=== PATIENT | female | born 2000 | race Caucasian/White ===

== ENCOUNTER 2020-05-01 01:54 | Emergency (ER) | payer OTHER ==
[~2020-05-01] VITALS: Ht 152.4 cm; Wt 72.7 kg
[2020-05-01 01:54] VITALS: BP 101/63
--- NOTE | 2020-05-01 02:17 | PHYS DOC ---
General Adult EDM: Chief Complaint: sore throat HPI: HPI: 19-year-old female presents with sore throat. The patient has had nasal congestion for about the last 1 week. She developed a sore throat today. I started hurting after she took a nap. She tried drinking some water to see if it would help but it has not. She denies fever chills. Review of Systems: Review of Systems: Constitutional: Denies fever or chills Eyes: Denies change in visual acuity HENT: sore throat Respiratory: Intermittent cough without shortness of breath Cardiovascular: Denies chest pain or edema GI: Denies abdominal pain, nausea, vomiting, bloody stools or diarrhea : Denies dysuria Musculoskeletal: Denies back pain or joint pain Integument: Denies rash Neurologic: Denies headache, focal weakness or sensory changes Endocrine: Denies polyuria or polydipsia Lymphatic: Denies swollen glands Psychiatric: Denies depression or anxiety Heart Score: Risk Factors: Risk Factors: DM, Current or recent (<one month) smoker, HTN, HLP, family history of CAD, obesity. Risk Scores: Score 0 - 3: 2.5% MACE over next 6 weeks - Discharge Home Score 4 - 6: 20.3% MACE over next 6 weeks - Admit for Clinical Observation Score 7 - 10: 72.7% MACE over next 6 weeks - Early Invasive Strategies Physical Exam: PE: Constitutional: Well developed, well nourished, no acute distress, non-toxic appearance. [] HENT: Normocephalic, atraumatic, bilateral external ears normal, oropharynx moist, enlarged tonsils without exudates, nose normal. [] Eyes: PERRLA, EOMI, conjunctiva normal, no discharge. [] Neck: Normal range of motion, no tenderness, supple, no stridor. [] Cardiovascular:Heart rate regular rhythm, no murmur [] Lungs & Thorax: Bilateral breath sounds clear to auscultation [] Abdomen: Bowel sounds normal, soft, no tenderness, no masses, no pulsatile masses. [] Skin: Warm, dry, no erythema, no rash. [] Back: No tenderness, no CVA tenderness. [] Extremities: No tenderness, no cyanosis, no clubbing, ROM intact, no edema. [] Neurologic: Alert and oriented X 3, normal motor function, normal sensory function, no focal deficits noted. [] Psychologic: Affect normal, judgement normal, mood normal. [] EKG: EKG: [] Radiology/Procedures: Radiology/Procedures: [] Course & Med Decision Making: Course & Med Decision Making Pertinent Labs and Imaging studies reviewed. (See chart for details) The patient's rapid strep is negative. This appears to be a viral pharyngitis. I have advised supportive care. She is stable for discharge at this time. [] Avison Disclaimer: Arben Disclaimer: This electronic medical record was generated, in whole or in part, using a voice recognition dictation system. Departure Departure: Impression: Primary Impression: Viral pharyngitis Disposition: HOME/RESIDENCE PRIOR TO ADM Condition: STABLE Patient Instructions: Viral Pharyngitis Justification of Admission: Justification of Admission: Justification of Admission Dx: N/A JONA DRAKE DO May 01, 2020 02:17
== END 2020-05-01 02:40 | disposition home or self-care (01) ==
LOC: ER 01:54
DX: J02.8 Acute pharyngitis due to other specified organisms (principal); B97.89 Other viral agents as the cause of diseases classified elsewhere
CPT/HCPCS: 87070; 87880; 99283

== ENCOUNTER 2020-06-25 01:32 | Emergency (ER) | payer OTHER ==
[~2020-06-25] VITALS: Ht 152.4 cm; Wt 72.7 kg
[2020-06-25] MEDS ORDERED: IPRATRPIUM/ALBUTEROL 0.5/2.5MG 3 ML NEBU. ONE (01:37)
[2020-06-25] MEDS ORDERED: MAGNESIUM HYDROXIDE 2,400 MG/30 ML ORAL.SUSP. PO ONE (01:45)
[2020-06-25] MEDS ORDERED: diphenhydrAMINE 50 MG/ML VIAL IV ONE (01:45)
[2020-06-25] MEDS ORDERED: FAMOTIDINE 20 MG/2 ML VIAL IVP ONE (01:45)
[2020-06-25] MEDS ORDERED: methylPREDNISolone SOD SUCC PF 125 MG/2 ML VIAL. IV ONE (01:45)
[2020-06-25] MEDS ORDERED: IPRATRPIUM/ALBUTEROL 0.5/2.5MG 3 ML NEBU. NEB ONE (01:45)
[2020-06-25] MEDS ORDERED: IV RINGERS SOLUTION,LACTATED 1,000 ML IV SCH (01:45)
--- NOTE | 2020-06-25 01:45 | PHYS DOC ---
Past History Past Medical History: Anxiety, Other Additional Past Medical Histor: strep Past Medical History Allergy to Aspirin Alcohol Use: None General Adult EDM: Chief Complaint: ALLERGIC REACTION HPI: HPI: ".." I think I am having an allergic reaction to Alligator meat.. this coughing..wheezing started ... after I ate the Alligator meat..." Patient is a 19 year old female who presents with above hx of allergic reactions after eating a $18.00 plate of Alligator meat at [employer] at approximately 1900 hrs. Pt. has eaten Alligator one previous time. Patient only other time allergic re action is after taking aspirin. Patient states symptoms started immediately after eating Alligator meat and have progressed until current presentation. Patient has had increased cough, wheezing and upset stomach. No recent travel or specific ill contacts. Normally healthy. No history immunosuppression. Does have a history of severe aspirin allergy. No recent travel outside the [place] area. Review of Systems: Review of Systems: Constitutional: Denies fever or chills Eyes: Denies change in visual acuity HENT: Denies nasal congestion or sore throat Respiratory: History of cough and wheezing Cardiovascular: Denies chest pain or edema GI: Denies abdominal pain, , vomiting, bloody stools or diarrhea . Complains of nausea : Denies dysuria Musculoskeletal: Denies back pain or joint pain Integument: Denies rash Neurologic: Denies headache, focal weakness or sensory changes Endocrine: Denies polyuria or polydipsia Lymphatic: Denies swollen glands Psychiatric: History of anxiety Heart Score: HEART Score for Chest Pain: HEART Score for Chest Pain Response (Comments) Value History Slighlty/Non-Suspicious 0 ECG Nonspecific Repolarizatio 1 Age < 45 0 Risk Factors No Risk Factors 0 Troponin < Normal Limit 0 Total 1 Risk Factors: Risk Factors: DM, Current or recent (<one month) smoker, HTN, HLP, family history of CAD, obesity. Risk Scores: Score 0 - 3: 2.5% MACE over next 6 weeks - Discharge Home Score 4 - 6: 20.3% MACE over next 6 weeks - Admit for Clinical Observation Score 7 - 10: 72.7% MACE over next 6 weeks - Early Invasive Strategies Family History: Family History: Noncontributory Current Medications: Current Meds: Current Medications Medications (Trade) Dose Ordered Sig/Angela Start Time Stop Time Status Last Admin Dose Admin Albuterol/ Ipratropium (Duoneb) 3 ml STK-MED ONCE 06/25/20 01:37 06/25/20 01:37 DC Allergies: Allergies: Allergies Coded Allergies Type Severity Reaction Last Updated Verified aspirin Allergy Unknown 06/25/20 Yes Physical Exam: PE: Constitutional: Moderate acute distress, non-toxic appearance. [] HENT: Normocephalic, atraumatic, bilateral external ears normal, oropharynx moist, no oral exudates, nose swollen turbinates and clear rhinorrhea Eyes: PERRLA, EOMI, conjunctiva normal, no discharge. [] Neck: Normal range of motion, no tenderness, supple, no stridor. [] Cardiovascular: Tachycardia heart rate regular rhythm, no murmur [] Lungs & Thorax: Bilateral breath sounds equal at apex with few scattered wheezes on auscultation [] Abdomen: Bowel sounds hyperactive, soft, no tenderness, no masses, no pulsatile masses. Obese Skin: Warm, dry, no erythema, no rash. [] Back: No tenderness, no CVA tenderness. [] Extremities: No tenderness, no cyanosis, no clubbing, ROM intact, no edema. [] Neurologic: Alert and oriented X 3, normal motor function, normal sensory function, no focal deficits noted. [] Psychologic: Affect extremely anxious, judgement normal, mood normal. Constantly on her cell phone. EKG: EKG: My interpretation EKG shows a sinus tachycardia at 109 bpm. No findings acute STEMI of contralateral changes .[] Radiology/Procedures: Radiology/Procedures: [] Course & Med Decision Making: Course & Med Decision Making Pertinent Labs and Imaging studies reviewed. (See chart for details) Patient given a DuoNeb, Solu-Medrol 125, Benadryl 50 mg, Pepcid 20 mg, and Solu- Medrol 125. IV patient was given a dose of milk of mag 30 cc p.o. since suspect that alligator may as a cause of her allergic reaction. Patient symptoms improved during ED visit. Patient avoid further alligator meat. Patient expect continued symptoms until passage of the alligator food bolus. Patient use MDI 2 puffs 4 times a day. Patient take prednisone 50 mg a day for 5 days. Patient take Benadryl 25 to 50 mg up to 4 times a day for itching. Patient take Pepcid 20 mg twice a day. Patient follow-up primary care. Patient return if concerns. Do not take any ibuprofen. May take Tylenol for discomfort. Impression: 1. Allergic reaction-alligator meat 2. History of allergic reaction to aspirin 3. History of anxiety [] Dragon Disclaimer: Dragon Disclaimer: This electronic medical record was generated, in whole or in part, using a voice recognition dictation system. Departure Departure: Disposition: HOME/RESIDENCE PRIOR TO ADM Condition: STABLE Referrals: PCP,KATIE (PCP) Scripts Famotidine (PEPCID) 20 Mg Tablet 1 TAB PO BID for allergic reaction, #10 TAB 3 Refills Prov: CLEVELAND MAN MD 06/25/20 Prednisone (PREDNISONE) 50 Mg Tablet 50 MG PO DAILY for allergic reaction for 5 Days, #5 TAB Prov: CLEVELAND MAN MD 06/25/20 Justification of Admission: Justification of Admission: Justification of Admission Dx: N/A Dragon Disclaimer This chart was dictated in whole or in part using Voice Recognition software in a busy, high-work load, and often noisy Emergency Department environment. It may contain unintended and wholly unrecognized errors or omissions. CLEVELAND MAN MD Jun 25, 2020 01:44
[2020-06-25] MEDS ORDERED: diphenhydrAMINE 50 MG/ML VIAL ONE (01:46)
[2020-06-25] MEDS ORDERED: FAMOTIDINE 20 MG/2 ML VIAL ONE (01:46)
[2020-06-25] MEDS ORDERED: methylPREDNISolone SOD SUCC PF 125 MG/2 ML VIAL. ONE (01:46)
--- NOTE | 2020-06-25 02:28 | EKG ---
[address] [address] Test Date: 2020-06-25 Test Time: 02:18:52 Pat Name: JUDI SALDANA Department: Room: Gender: F Setup Operator: : 2000 Requested By: CLEVELAND MAN Order Number: [id number] Reading MD: Measurements Intervals [place] Rate: 109 P: 6 PA: 140 QRS: 48 QRSD: 84 T: 10 QT: 304 QTc: 411 Interpretive Statements SINUS TACHYCARDIA NO SPECIFIC ECG ABNORMALITIES RI6.02 No previous ECG available for comparison
[2020-06-25 02:30] LABS: CALCIUM 9.3 mg/dL (8.5-10.1); CREATININE 1.1 mg/dL (0.6-1.0); GFR 62.7; POTASSIUM 3.6 mmol/L (3.5-5.1)
[2020-06-25 02:39] LABS: BASO # 0.1 x10^3/uL (0.0-0.2); BASO % 1 % (0-3); EOS # 0.2 x10^3/uL (0.0-0.7); EOS % 2 % (0-3); HEMATOCRIT 41.5 % (36.0-47.0); HEMOGLOBIN 13.7 g/dL (12.0-15.5); LYMPH # 2.8 x10^3/uL (1.0-4.8); LYMPH % 28 % (24-48); MEAN CORPUSCULAR HEMOGLOBIN 28 pg (25-35); MEAN CORPUSCULAR HGB CONC 33 g/dL (31-37); MEAN CORPUSCULAR VOLUME 85 fL (79-100); MONO # 0.7 x10^3/uL (0.0-1.1); MONO % 7 % (0-9); NEUT # 6.3 x10^3uL (1.8-7.7); NEUT % 62 % (31-73); PLATELET COUNT 221 x10^3/uL (140-400); RED BLOOD COUNT 4.91 x10^6/uL (3.50-5.40); RED CELL DISTRIBUTION WIDTH 13.8 % (11.5-14.5)
[2020-06-25 02:42] LABS: MAGNESIUM 1.9 mg/dL (1.8-2.4)
[2020-06-25] MEDS ORDERED: IV RINGERS SOLUTION,LACTATED 1,000 ML IV ONE (03:30)
[2020-06-25 03:48] LABS: BARBITURATES NEG (NEG); BENZODIAZEPINES NEG (NEG); CANNABINOIDS NEG (NEG); COCAINE NEG (NEG); METHADONE NEG (NEG); OPIATES NEG (NEG); PHENCYCLIDINE NEG (NEG)
[2020-06-25 03:50] LABS: AMPHETAMINE/METHAMPHETAMINE NEG (NEG)
[2020-06-25 03:55] LABS: BACTERIA,URINE 0 /HPF (0-FEW); BILIRUBIN,URINE NEG (NEG); CLARITY,URINE CLEAR; COLOR,URINE YELLOW; GLUCOSE,URINE NEG (NEG); NITRITE,URINE NEG (NEG); RBC,URINE 0 /HPF (0-2); SQUAMOUS EPITHELIAL CELL,UR FEW /LPF; UROBILINOGEN,URINE 0.2 mg/dL (0.2 mg/dL); WBC,URINE OCC /HPF (0-4)
[2020-06-25] MEDS ORDERED: ALBUTEROL SULFATE 8GM INHALER. INH ONE (04:15)
[2020-06-25] MEDS ORDERED: FAMO-63 PO (04:31)
[2020-06-25] MEDS ORDERED: PRED50TA PO (04:31)
[2020-06-25] MEDS ORDERED: ALBUTEROL SULFATE 8GM INHALER. ONE (04:32)
[2020-06-25 04:35] VITALS: BP 103/43
== END 2020-06-25 04:40 | disposition home or self-care (01) ==
LOC: ER 01:32
DX: T78.1XXA Other adverse food reactions, not elsewhere classified, initial encounter (principal); R05 Cough; R06.2 Wheezing; F41.9 Anxiety disorder, unspecified; Z88.6 Allergy status to analgesic agent; X58.XXXA Exposure to other specified factors, initial encounter
CPT/HCPCS: 36415; 80048; 80307; 81001; 83735; 83880; 85025; 93005; 94640; 96361; 96374; 96375; 99285; J1200; J2930; J3490; J7120; J7613; 94664

== ENCOUNTER 2020-10-30 22:16 | Emergency (ER) | payer OTHER ==
[~2020-10-30] VITALS: Ht 152.4 cm; Wt 84.7 kg
[2020-10-30 22:16] VITALS: BP 109/67
[~2020-10-30 22:16] MED LIST: FAMO-63 PO; PRED50TA PO
--- NOTE | 2020-10-30 22:41 | PHYS DOC ---
Past History Past Medical History: Anxiety, Other Past Surgical History: No Surgical History Alcohol Use: None Adult General Chief Complaint Chief Complaint: MULTIPLE COMPLAINTS [facility] HPI Patient is a healthy fully vaccinated 20-year-old female who presents for Covid- like symptoms. Onset of symptoms was yesterday evening without any known inciting event, trauma, recent travel or known COVID-19 exposure. Nothing known makes better or worse. Patient reports subjective chills, rhinorrhea, postnasal drip, sneezing, facial congestion, generalized chest pressure and shortness of breath without wheezing, and a nonproductive cough. No reported fever greater than 100.4, syncope, dizziness, abdominal pain, changes in bladder or bowel function or urinary symptoms. She works at [employer] and is exposed to general public daily Review of Systems Review of Systems Fourteen body systems of review of systems have been reviewed. See HPI for pertinent positives and negative responses, other marie all other systems are negative, non-pertinent or non-contributory Allergies Allergies Allergies Coded Allergies Type Severity Reaction Last Updated Verified aspirin Allergy Unknown 06/25/20 Yes Uncoded Allergies Type Severity Reaction Last Updated Verified alligator Allergy Intermediate SOB 06/25/20 Physical Exam Physical Exam General: Appears well, non toxic, and comfortable Skin: Warm, dry. Normal for ethnicity. HEENT: Atraumatic. PERRLA. Rhinorrhea and congestion. Nasal turbinates boggy b/l. Moist mucous membranes. Uvula midline. Maintaining secretions. No phonation changes. Neck: Trachea midline. Normal ROM. No stridor. Respiratory: Normal WOB. CTAB w/o w/r/r. No tachypnea. Cardiovascular: Regular rate and rhythm. Normal peripheral perfusion. Abdomen: Soft. Non tender. No distension. Back: Normal ROM. Musculoskeletal: No swelling or deformity. Neuro: Alert and oriented x 4. MAEE. Lymph: No cervical LAD. Psych: Normal affect and mood. Current Patient Data Vital Signs Vital Signs Date Time Temp Pulse Resp B/P (MAP) Pulse Ox O2 Delivery O2 Flow Rate FiO2 10/30/20 22:16 98.4 83 18 109/67 (81) 96 Room Air EKG EKG EKG ordered and interpreted by myself 2240 hrs. as sinus rhythm at 73 bpm, unremarkable intervals, no axis deviation, T wave inversions noted in leads V2 and V3, no STEMI, no prior EKG to compare to Radiology/Procedures Radiology/Procedures EXAM: AP View of the chest DATE: 10/30/2020 10:42 PM INDICATION: Reason: CHEST PAIN, COUGH / Spl. Instructions: / History: COMPARISON: No Prior FINDINGS: The heart is not enlarged. Mediastinal and hilar contours are normal. No focal parenchymal airspace opacity. No pleural effusion or pneumothorax. IMPRESSION: 1. No radiographic evidence for acute cardiopulmonary process. Electronically signed by: Francisco Kimbrough MD (10/30/2020 11:03 PM) [facility] Heart Score HEART Score for Chest Pain: HEART Score for Chest Pain Response (Comments) Value History Slighlty/Non-Suspicious 0 ECG Nonspecific Repolarizatio 1 Age < 45 0 Risk Factors No Risk Factors 0 Total 1 Risk Factors: Risk Factors: DM, Current or recent (<one month) smoker, HTN, HLP, family history of CAD, obesity. Risk Scores: Risk Factors: DM, Current or recent (<one month) smoker, HTN, HLP, family history of CAD, obesity. Course & Med Decision Making Course & Med Decision Making Discussed with the patient all findings and diagnostic testing. I discussed most likely diagnosis of viral syndrome but could not exclude COVID-19 given ongoing pandemic, she was swabbed for this and updated on status of being a PUI. No indication for further diagnostic work-up in ER nor admission. I stressed need for close outpatient follow-up to review today's ER visit pending negative Covid test. I advised continued supportive care practices at home such as using Zyrtec and Flonase daily and ensuring good p.o. water intake daily. Strict return precautions were also discussed at length with good understanding by patient. Patient voiced understanding and agreement with the plan. Patient knows to come back for repeat evaluation if concerning signs or symptoms present prior to outpatient follow-up. Hemodynamically stable, ambulatory and well-appearing at time of disposition. Dragon Disclaimer Dragon Disclaimer This electronic medical record was generated, in whole or in part, using a voice recognition dictation system. Departure Departure: Impression: Primary Impression: Viral syndrome Additional Impression: Person under investigation for COVID-19 Disposition: 01 DC HOME SELF CARE/HOMELESS Condition: STABLE Referrals: PCP,NO (PCP) Patient Instructions: Viral Syndrome Additional Instructions: You were seen for non-specific upper respiratory-like symptoms and possible infection with COVID-19. Your physical exam was reassuring. Your chest x-ray was normal. We tested you for COVID-19 but this test does not come back for 1 to 2 days. In the meantime you need to quarantine yourself at home away from all other individuals, especially those who are elderly or have any other chronic health issues or an immunocompromised status. You should return to the ED if you develop worsening cough, shortness of breath, chest pain, or any other new or concerning symptoms. Alternate Tylenol and ibuprofen as needed for body aches and pain. If your test does come back positive you need to quarantine yourself for 10 days until symptom-free. You should make sure to drink plenty of fluids and get plenty of rest. Problem Qualifiers JOSE BECKER DO Oct 30, 2020 22:41
--- NOTE | 2020-10-30 22:48 | EKG ---
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
[2020-10-30] MEDS ORDERED: CETIRIZINE HCL 10 MG TABLET PO ONE (23:00)
--- NOTE | 2020-10-30 23:05 | RAD ---
EXAM: AP View of the chest DATE: 10/30/2020 10:42 PM INDICATION: Reason: CHEST PAIN, COUGH / Spl. Instructions: / History: COMPARISON: No Prior FINDINGS: The heart is not enlarged. Mediastinal and hilar contours are normal. No focal parenchymal airspace opacity. No pleural effusion or pneumothorax. IMPRESSION: 1. No radiographic evidence for acute cardiopulmonary process. Electronically signed by: Francisco Kimbrough MD (10/30/2020 11:03 PM) AVE
--- NOTE | 2020-11-05 09:08 | NUR ---
IP: attempt to notify patient of COVID result, unable to leave message. Will send letter.
--- NOTE | 2020-11-05 11:23 | NUR ---
IP: patient notified of COVID result.
== END 2020-10-30 23:00 | disposition home or self-care (01) ==
LOC: ER 22:16
DX: B34.9 Viral infection, unspecified (principal); F41.9 Anxiety disorder, unspecified; Z20.828 Contact with and (suspected) exposure to other viral communicable diseases; Z88.6 Allergy status to analgesic agent
CPT/HCPCS: 71045; 93005; 99285; C9803; U0003; 99284

== ENCOUNTER 2020-12-04 14:01 | Emergency (ER) | payer OTHER ==
[~2020-12-04] VITALS: Ht 165.1 cm; Wt 81.8 kg
[2020-12-04 14:14] VITALS: BP 96/70
--- NOTE | 2020-12-04 15:48 | PHYS DOC ---
Past History Past Medical History: Asthma, Depression, Other Additional Past Medical Histor: PTSD Past Surgical History: Other Additional Past Surgical Histo: EYE SURGERY Alcohol Use: None General Adult EDM: Chief Complaint: sore throat HPI: HPI: 20-year-old female presents emergency department today with a sore throat. Her sore throat is been present for a few days. She denies any difficulty swallowing or difficulty breathing. She has not had any exposure to COVID-19 that she knows of. She denies fevers or chills. She denies any rashes. Duration constant. Moderate in severity. Throbbing in nature. Review of systems negative for chest pain shortness of breath abdominal pain vom iting fevers chills. Negative for nuchal rigidity or rash. All other review of systems negative. ED course: 20-year-old female presenting with sore throat. Patient is well- appearing with normal vital signs (mildly low bp) and a normal examination. Str ep test negative. I offered Covid testing which the patient declined. Will discharge patient to follow-up with PCP in 1 to 2 days. The patient has been examined and was not found to have an emergency medical condition. The patient was then discharged home in stable condition to follow up with their primary care physician over the next 1-2 days. They were to return if their symptoms worsened or if they were concerned for any reason. They were also instructed to return to the emergency department if they were unable to get the recommended and appropriate follow-up. [id number] discharge instructions and return precautions were given. Patient's questions were answered to their satisfaction. Patient is comfortable with plan. Allergies: Allergies: Allergies Coded Allergies Type Severity Reaction Last Updated Verified aspirin Allergy Unknown 06/25/20 Yes Uncoded Allergies Type Severity Reaction Last Updated Verified alligator Allergy Intermediate SOB 06/25/20 Physical Exam: PE: Constitutional: Well developed, well nourished, no acute distress, non-toxic appearance. [] HENT: Normocephalic, atraumatic, bilateral external ears normal, oropharynx moist, no oral exudates, nose normal. Mild erythema of the throat. No exudate of the tonsils. Uvula midline. Breathing comfortably. Swallowing secretions well with difficulty. No swelling of the neck. Eyes: PERRLA, EOMI, conjunctiva normal, no discharge. [] Neck: Normal range of motion, no tenderness, supple, no stridor. [] Cardiovascular:Heart rate regular rhythm, no murmur [] Lungs & Thorax: Bilateral breath sounds clear to auscultation [] Abdomen: Bowel sounds normal, soft, no tenderness, no masses, no pulsatile masses. [] Skin: Warm, dry, no erythema, no rash. [] Back: No tenderness, no CVA tenderness. [] Extremities: No tenderness, no cyanosis, no clubbing, ROM intact, no edema. [] Neurologic: Alert and oriented X 3, normal motor function, normal sensory function, no focal deficits noted. [] Psychologic: Affect normal, judgement normal, mood normal. [] Current Patient Data: Vital Signs: Vital Signs Date Time Temp Pulse Resp B/P (MAP) Pulse Ox O2 Delivery O2 Flow Rate FiO2 12/04/20 14:14 98.5 87 18 96/70 (79) 96 Room Air EKG: EKG: [] Radiology/Procedures: Radiology/Procedures: [] Heart Score: Risk Factors: Risk Factors: DM, Current or recent (<one month) smoker, HTN, HLP, family history of CAD, obesity. Risk Scores: Score 0 - 3: 2.5% MACE over next 6 weeks - Discharge Home Score 4 - 6: 20.3% MACE over next 6 weeks - Admit for Clinical Observation Score 7 - 10: 72.7% MACE over next 6 weeks - Early Invasive Strategies Course & Med Decision Making: Course & Med Decision Making Pertinent Labs and Imaging studies reviewed. (See chart for details) [] Arben Disclaimer: Dragon Disclaimer: This electronic medical record was generated, in whole or in part, using a voice recognition dictation system. Departure Departure: Impression: Primary Impression: Sore throat (viral) Disposition: 01 DC HOME SELF CARE/HOMELESS Condition: STABLE Referrals: PCP,NO (PCP) Patient Instructions: Medical Screening Exam Additional Instructions: EMERGENCY DEPARTMENT GENERAL DISCHARGE INSTRUCTIONS Follow-up with your primary physician in 1 to 2 days. Return to the emergency department if you have any new or concerning findings. Thank you for coming to [facility] emergency department today and trusting us with you care. We trust that you had a positive experience in our Emergency Department. If you wish to speak to the department management, you may call the Director at [phone]. YOUR FOLLOW UP INSTRUCTIONS ARE FOLLOWS: 1. Do you have a private Doctor? If you do not have a private doctor, please ask for a resource list of physicians or clinics that may be able to assist you with follow up care. 2. If a lab test or culture has been done and does not come back immediately, your results will be reviewed and you will be notified if you need a change in treatment. ADDITIONAL INSTRUCTIONS AND INFORMATION: 1. Your care today has been supervised by a physician who is specially trained in emergency care. Many problems require more than one evaluation for a complete diagnosis and treatment. We recommend that you schedule your follow up appointment as recommended to ensure complete treatment of you illness or injury. If you are unable to obtain follow up care and continue to have a problem, or if your condition worsens, we recommend that you return to the ED. 2. We are not able to safely determine your condition over the phone nor are we able to give sound medical advice over the phone. For these safety reasons, if you call for medical advice we will ask you to come to the ED for further evaluation. 3. If you have any questions regarding these discharge instructions please call the ED at [phone]. SAFETY INFORMATION: In the interest of safety, wellness, and injury prevention; we encourage you to wear your sealbelt, if you smoke; quite smoking, and we encourage family to use a protective helmet for bicycling and other sporting events that present an increased risk for head injury. IF YOUR SYMPTOMS WORSEN OR NEW SYMPTOMS DEVELOP, OR YOU HAVE CONCERNS ABOUT YOUR CONDITION; OR IF YOUR CONDITION WORSENS WHILE YOU ARE WAITING FOR YOUR FOLLOW UP APPOINTMENT; EITHER CONTACT YOUR PRIMARY CARE DOCTOR, THE PHYSICIAN WHOSE NAME AND NUMBER YOU WERE GIVEN, OR RETURN TO THE ED IMMEDIATELY. This condition should be evaluated by your primary care physician and any necessary consulting services for continued management within a few days (1-2) after discharge. Return to the emergency department if you have any new or concerning symptoms including but not limited to fever, chills, nausea, vomiting, intractable pain, any new rashes, chest pain, shortness of breath, uncontrolled bleeding, difficulty breathing, and/or vision loss. SIA BOURGEOIS MD Dec 04, 2020 15:48
== END 2020-12-04 16:20 | disposition home or self-care (01) ==
LOC: ER 14:01
DX: J02.8 Acute pharyngitis due to other specified organisms (principal); B97.89 Other viral agents as the cause of diseases classified elsewhere; J45.909 Unspecified asthma, uncomplicated; F43.10 Post-traumatic stress disorder, unspecified; Z88.0 Allergy status to penicillin
CPT/HCPCS: 87070; 87880; 99283

== ENCOUNTER 2020-12-06 21:33 | Emergency (ER) | payer OTHER ==
[~2020-12-06] VITALS: Ht 165.1 cm; Wt 81.8 kg
--- NOTE | 2020-12-06 22:24 | PHYS DOC ---
Past History Past Medical History: Anxiety, Asthma, Depression, Migraines, Sinusitis, Other Additional Past Medical Histor: PTSD Past Medical History Dental caries Past Surgical History: Other Additional Past Surgical Histo: EYE SURGERY Alcohol Use: None General Adult EDM: Chief Complaint: HEADACHE HPI: HPI: ".. I am still got a sore throat.. and these frontal headache and congestion.. I was here the other day.. and I am not better..." " I feel much worse.." Patient is a 20 year old female who presents with above hx frontal sinus congest ion, sore throat and complaints mirgraine . Patient seen previously on 12/04/20 for similar complaints. Patient does have a history of prior migraines, asthma, dental caries, depression, PTSD, eye surgery,, anxiety. Patient strep test previously was negative on visit and felt that symptoms were primarily a viral syndrome. Patient states her migraine symptoms have not resolved, some photophobia and now dizzy. . Patient denies any fever or chills. Denies any specific ill contacts. No history immunosuppression. No history of recent travel. No history of trauma. Patient denies IV drug use.. Patient states she has had no relief with use of Tylenol or ibuprofen. Patient advises she is try to use [id number]-[id number] decongestants with no success. Review of Systems: Review of Systems: Constitutional: Denies fever or chills Eyes: Denies change in visual acuity . Complains of photophobia HENT: Complains of nasal congestion and sore throat . Respiratory: Denies cough or shortness of breath Cardiovascular: Denies chest pain or edema GI: Denies abdominal pain, nausea, vomiting, bloody stools or diarrhea : Denies dysuria Musculoskeletal: Denies back pain or joint pain Integument: Denies rash Neurologic: Complains of migraine and frontal headache,. Denies focal weakness or sensory changes . Dizzy. Endocrine: Denies polyuria or polydipsia Lymphatic: Denies swollen glands Psychiatric: Denies depression or anxiety Family History: Family History: Noncontributory to presentation Current Medications: Current Meds: See nursing for home meds Allergies: Allergies: Allergies Coded Allergies Type Severity Reaction Last Updated Verified aspirin Allergy Unknown 06/25/20 Yes Uncoded Allergies Type Severity Reaction Last Updated Verified alligator Allergy Intermediate SOB 06/25/20 Physical Exam: PE: Constitutional: Moderate acute distress, non-toxic appearance. [] HENT: Normocephalic, atraumatic, bilateral external ears normal, oropharynx moist, injected pharynx, postnasal drip, multiple dental caries no oral exudates, nose swollen turbinates and clear rhinorrhea. Frontal sinuses are very tender to percussion. TMs clear Eyes: PERRLA, EOMI, conjunctiva normal, no discharge. No obvious gross field deficits. Fundi optic disks limited but no obvious acute pathology Neck: Normal range of motion, no cervical tenderness, supple, no stridor. Does have some adenopathy anterior angle, tenderness and cervical chain Cardiovascular:Heart rate regular rhythm, no murmur [] Lungs & Thorax: Bilateral breath sounds equal apex with few scattered wheezes on auscultation [] Abdomen: Bowel sounds normal, soft, no tenderness, no masses, no pulsatile masses. [] Skin: Warm, dry, no erythema, no rash. [] Back: No tenderness, no CVA tenderness. [] Extremities: No tenderness, no cyanosis, no clubbing, ROM intact, no edema. [] Neurologic: Alert and oriented X 3, moves all extremities on request, has distal sensory,, no focal deficits noted. DTRs +2 at patella and brachial. Android Platform Developer equal. No drift. Psychologic: Affect anxious, judgement normal, mood normal. [] Current Patient Data: Vital Signs: Vital Signs Date Time Temp Pulse Resp B/P (MAP) Pulse Ox O2 Delivery O2 Flow Rate FiO2 12/06/20 21:48 98.0 87 16 122/52 (75) 97 Room Air EKG: EKG: [] Radiology/Procedures: Radiology/Procedures: [][address] [address] IMAGING REPORT Signed PATIENT: JUDI SALDANA ACCOUNT: [id number] : 2000 LOCATION: ER AGE: 20 SEX: F EXAM STATUS: PRE ER ORD. PHYSICIAN: CLEVELAND MAN MD REASON: Exacerbation headache, facial fullness, pain PROCEDURE: CT HEAD AND MAXILLOFACIAL WO CT head without contrast. Maxillofacial CT without contrast. PQRS statement: CT scans at this facility use dose reduction including either automated exposure control, iterative reconstructions, and /or weight based radiation dosing via mA and kV modification when appropriate to reduce radiation dose to as low as reasonably achievable. HISTORY: Exacerbation headache, facial fullness and facial pain. CT abdomen findings: No intracranial hemorrhage, mass, hydrocephalus, extra- axial fluid collections or infarction. No acute ischemic changes evident. Right maxillary sinus cyst. Orbits, mastoids and bones are unremarkable. IMPRESSION: Normal CT head. Maxillofacial CT findings: There are bilateral maxillary molar dental caries with mild periapical lucencies could represent some erosions versus early periapical cyst. No abscesses. Partial opacification and mucosal thickening ethmoid sinuses. Cysts right maxillary sinus of most of the sinus. Left maxillary sinus mucosal thickening inferiorly. No fluid within the paranasal sinuses. No facial bone fracture. Nasal bones intact. Maxilla and mandible intact. Bony orbits intact. No orbital edema or hematoma. Mild enlarged level 2 jugular chain lymph nodes largest on the left measuring 1.8 x 1.2 cm. IMPRESSION: 1. Facial bones intact. 2. Mild paranasal sinus disease as described above. 3. Mild upper cervical level 2 jugular chain adenopathy. 4. Dental disease as described above. Electronically signed by: Janis Zepeda MD (12/06/2020 11:36 PM) [facility] [place]CTATED AND SIGNED BY: JANIS ZEPEDA MD DATE: 12/06/202328 CC: CLEVELAND MAN MD; PCP,NO ~MTH0 0 Heart Score: Risk Factors: Risk Factors: DM, Current or recent (<one month) smoker, HTN, HLP, family history of CAD, obesity. Risk Scores: Score 0 - 3: 2.5% MACE over next 6 weeks - Discharge Home Score 4 - 6: 20.3% MACE over next 6 weeks - Admit for Clinical Observation Score 7 - 10: 72.7% MACE over next 6 weeks - Early Invasive Strategies Course & Med Decision Making: Course & Med Decision Making Pertinent Labs and Imaging studies reviewed. (See chart for details) Pt. declined spinal tap at this time. Risk and benefits discussed. Patient use normal saline rinses at least 4 times a day and as needed. Patient use Flonase hkko-ces-gbglfma 2 sprays each nostril at night before going to bed. Patient to use enyg-age-hflwhog Afrin 2 sprays each nostril before going to bed to help with congestion. Patient started course of amoxicillin 500 mg 3 times a day for the next 15 days. Patient advised he may need a repeat course of amoxicillin to clear up her sinusitis. Patient to take Diflucan 100 mg daily for 3 days after she completes the amoxicillin. Follow-up with dentist for her dental caries. Return if any concerns. Must follow-up with primary care. Impression: 1. Headache-appears to be pansinusitis vs migraine 2. Viral syndrome 3. Dental caries 4. Cervical adenopathy [] Dragon Disclaimer: Dragon Disclaimer: This electronic medical record was generated, in whole or in part, using a voice recognition dictation system. Departure Departure: Referrals: PCP,NO (PCP) Scripts Fluconazole (DIFLUCAN) 100 Mg Tablet 100 MG PO DAILY for post antibiotic, #3 TAB Prov: CLEVELAND MAN MD 12/07/20 Amoxicillin (AMOXICILLIN) 500 Mg Capsule 500 MG PO TID for sinus for 14 Days, #42 CAP Prov: CLEVELAND MAN MD 12/07/20 Arben Disclaimer This chart was dictated in whole or in part using Voice Recognition software in a busy, high-work load, and often noisy Emergency Department environment. It ma y contain unintended and wholly unrecognized errors or omissions. CLEVELAND MAN MD Dec 06, 2020 22:23
[2020-12-06] MEDS ORDERED: predniSONE 10 MG TABLET PO ONE (23:00)
--- NOTE | 2020-12-06 23:38 | RAD ---
CT head without contrast. Maxillofacial CT without contrast. PQRS statement: CT scans at this facility use dose reduction including either automated exposure cont rol, iterative reconstructions, and /or weight based radiation dosing via mA and kV modification when appropriate to reduce radiation dose to as low as reasonably achievable. HISTORY: Exacerbation headache, facial fullness and facial pain. CT abdomen findings: No intracranial hemorrhage, mass, hydrocephalus, extra-axial fluid collections o r infarction. No acute ischemic changes evident. Right maxillary sinus cyst. Orbits, mastoids and bon es are unremarkable. IMPRESSION: Normal CT head. Maxillofacial CT findings: There are bilateral maxillary molar dental caries with mild periapical justin encies could represent some erosions versus early periapical cyst. No abscesses. Partial opacificatio n and mucosal thickening ethmoid sinuses. Cysts right maxillary sinus of most of the sinus. Left maxi llary sinus mucosal thickening inferiorly. No fluid within the paranasal sinuses. No facial bone frac ture. Nasal bones intact. Maxilla and mandible intact. Bony orbits intact. No orbital edema or hemato ma. Mild enlarged level 2 jugular chain lymph nodes largest on the left measuring 1.8 x 1.2 cm. IMPRESSION: 1. Facial bones intact. 2. Mild paranasal sinus disease as described above. 3. Mild upper cervical level 2 jugular chain adenopathy. 4. Dental disease as described above. Electronically signed by: Omer Zepeda MD (12/06/2020 11:36 PM) [facility]
[2020-12-06 23:44] VITALS: BP 118/51
[2020-12-07] MEDS ORDERED: AMOXICILLIN 250 MG CAPSULE ONE (00:26)
[2020-12-07] MEDS ORDERED: AMOXICILLIN 250 MG CAPSULE PO ONE (00:30)
[2020-12-07] MEDS ORDERED: AMOX500C PO (00:30)
[2020-12-07] MEDS ORDERED: FLUC100T7 PO (00:31)
== END 2020-12-07 00:53 | disposition home or self-care (01) ==
LOC: ER 21:33
DX: B34.9 Viral infection, unspecified (principal); K02.9 Dental caries, unspecified; R59.0 Localized enlarged lymph nodes; G43.909 Migraine, unspecified, not intractable, without status migrainosus; F41.9 Anxiety disorder, unspecified; J45.909 Unspecified asthma, uncomplicated; F32.9 Major depressive disorder, single episode, unspecified; F43.10 Post-traumatic stress disorder, unspecified; Z88.6 Allergy status to analgesic agent
CPT/HCPCS: 70450; 70486; 99285; J7512

== ENCOUNTER 2021-09-06 21:31 | Emergency (ER) | payer OTHER ==
[~2021-09-06] VITALS: Ht 165.1 cm; Wt 88.4 kg
[~2021-09-06 21:31] MED LIST changes: +AMOX500C PO; +FLUC100T7 PO
--- NOTE | 2021-09-06 22:26 | PHYS DOC ---
Past History Past Medical History: Anxiety, Asthma, Depression, Migraines, Sinusitis, Other Additional Past Medical Histor: PTSD Past Surgical History: Other Additional Past Surgical Histo: EYE SURGERY Alcohol Use: None General Adult EDM: Chief Complaint: ABDOMINAL PAIN HPI: HPI: "..I ve been nauseated the past week... " Patient is a 20 year old female who presents with above hx and complaints of nausea x 1 week. Pt. Gravid 4 T3. Pregnancies were vaginal deliveries. No recent travel. No history of bad food intake. No specific ill contacts. 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 Pt. UA= for pregancy. Patient denies any trauma. Patient denies any fever chills. Patient denies any history immunosuppression. Review of Systems: Review of Systems: Constitutional: Denies fever or chills Eyes: Denies change in visual acuity HENT: Denies nasal congestion or sore throat Respiratory: Denies cough or shortness of breath Cardiovascular: Denies chest pain or edema GI: Complains of nausea and vomiting : Denies dysuria Musculoskeletal: Denies back pain or joint pain Integument: Denies rash Neurologic: Denies headache, focal weakness or sensory changes Endocrine: Denies polyuria or polydipsia Lymphatic: Denies swollen glands Psychiatric: Denies depression or anxiety Family History: Family History: Noncontributory to presentation Current Medications: Current Meds: See nursing for home meds Allergies: Allergies: Allergies Coded Allergies Type Severity Reaction Last Updated Verified aspirin Allergy Unknown 06/25/20 Yes shellfish derived Allergy Unknown 09/06/21 Yes Uncoded Allergies Type Severity Reaction Last Updated Verified alligator Allergy Intermediate SOB 06/25/20 Physical Exam: PE: Constitutional: no acute distress, non-toxic appearance. [] HENT: Normocephalic, atraumatic, bilateral external ears normal, oropharynx moist, no oral exudates, nose normal. [] Eyes: PERRLA, EOMI, conjunctiva normal, no discharge. [] Neck: Normal range of motion, no tenderness, supple, no stridor. [] Cardiovascular:Heart rate regular rhythm, no murmur [] Lungs & Thorax: Bilateral breath sounds equal at apex on auscultation [] Abdomen: Bowel sounds normal, soft, no tenderness, no masses, no pulsatile masses. [] Skin: Warm, dry, no erythema, no rash. [] Back: No tenderness, no CVA tenderness. [] Extremities: No tenderness, no cyanosis, no clubbing, ROM intact, no edema. No cording. Neurologic: Alert and oriented X 3, normal motor function, normal sensory function, no focal deficits noted. [] DTRs +2 patella and brachial. Psychologic: Affect normal, judgement normal, mood normal. [] Current Patient Data: Labs: Laboratory Tests Test 09/06/21 22:09 POC Urine HCG, Qualitative hcg positive (Negative) Vital Signs: Vital Signs Date Time Temp Pulse Resp B/P (MAP) Pulse Ox O2 Delivery O2 Flow Rate FiO2 09/06/21 21:41 98.5 89 16 133/82 (99) 98 Room Air EKG: EKG: [] Radiology/Procedures: Radiology/Procedures: [] Heart Score: C/O Chest Pain: N/A Risk Factors: Risk Factors: DM, Current or recent (<one month) smoker, HTN, HLP, family history of CAD, obesity. Risk Scores: Score 0 - 3: 2.5% MACE over next 6 weeks - Discharge Home Score 4 - 6: 20.3% MACE over next 6 weeks - Admit for Clinical Observation Score 7 - 10: 72.7% MACE over next 6 weeks - Early Invasive Strategies Course & Med Decision Making: Course & Med Decision Making Pertinent Labs and Imaging studies reviewed. (See chart for details) Patient to take Zofran for only active vomiting. Patient push clear fluids. Clear fluids for the next couple days. Have a repeat beta-hCG in 3 days. Follow-up with HEAT TREATING OPERATOR. Return if any concerns. Patient started on vitamins. Impression: 1. Hyperemesis gravidarum 2. Estimate patient is approximately 1 month 3. Beta-hCG 27 4. Hemoglobin mild anemia 12.7 5. Blood type is O+positive [] Dragon Disclaimer: Dragon Disclaimer: This electronic medical record was generated, in whole or in part, using a voice recognition dictation system. Departure Departure: Referrals: PCP,NO (PCP) Scripts Ondansetron Hcl (ZOFRAN) 4 Mg Tablet 8 MG PO QIDPRN PRN for NAUSEA/VOMITING, #30 TAB Prov: CLEVELAND MAN MD 09/07/21 Arben Disclaimer This chart was dictated in whole or in part using Voice Recognition software in a busy, high-work load, and often noisy Emergency Department environment. It may contain unintended and wholly unrecognized errors or omissions. CLEVELAND MAN MD Sep 06, 2021 22:26
[2021-09-06] MEDS ORDERED: FAMOTIDINE 20 MG/2 ML VIAL IVP ONE (23:00)
[2021-09-06] MEDS ORDERED: IV RINGERS SOLUTION,LACTATED 1,000 ML IV SCH (23:00)
[2021-09-06] MEDS ORDERED: ONDANSETRON PF 4 MG/2 ML VIAL. IVP ONE (23:00)
[2021-09-07 00:03] LABS: CALCIUM 8.9 mg/dL (8.5-10.1); CREATININE 0.8 mg/dL (0.6-1.0); GFR 89.7; POTASSIUM 3.6 mmol/L (3.5-5.1)
[2021-09-07 00:04] LABS: BASO # 0.1 x10^3/uL (0.0-0.2); BASO % 1 % (0-3); EOS # 0.2 x10^3/uL (0.0-0.7); EOS % 3 % (0-3); HEMATOCRIT 38.1 % (36.0-47.0); HEMOGLOBIN 12.7 g/dL (12.0-15.5); LYMPH # 2.5 x10^3/uL (1.0-4.8); LYMPH % 35 % (24-48); MEAN CORPUSCULAR HEMOGLOBIN 27 pg (25-35); MEAN CORPUSCULAR HGB CONC 33 g/dL (31-37); MEAN CORPUSCULAR VOLUME 82 fL (79-100); MONO # 0.6 x10^3/uL (0.0-1.1); MONO % 9 % (0-9); NEUT # 3.8 x10^3uL (1.8-7.7); NEUT % 52 % (31-73); PLATELET COUNT 212 x10^3/uL (140-400); RED BLOOD COUNT 4.64 x10^6/uL (3.50-5.40); RED CELL DISTRIBUTION WIDTH 13.7 % (11.5-14.5); WHITE BLOOD COUNT 7.2 x10^3/uL (4.0-11.0)
[2021-09-07 00:10] LABS: ALBUMIN 3.6 g/dL (3.4-5.0); DIRECT BILIRUBIN 0.2 mg/dL (0.0-0.2); TOTAL BILIRUBIN 0.7 mg/dL (0.2-1.0); TOTAL PROTEIN 7.1 g/dL (6.4-8.2)
[2021-09-07 01:09] LABS: AMPHETAMINE/METHAMPHETAMINE NEG (NEG); BARBITURATES NEG (NEG); BENZODIAZEPINES NEG (NEG); CANNABINOIDS NEG (NEG); COCAINE NEG (NEG); METHADONE NEG (NEG); OPIATES NEG (NEG); PHENCYCLIDINE NEG (NEG)
[2021-09-07 01:23] LABS: BILIRUBIN,URINE NEG (NEG); CLARITY,URINE CLEAR; COLOR,URINE YELLOW; GLUCOSE,URINE NEG (NEG); NITRITE,URINE NEG (NEG)
[2021-09-07 01:24] LABS: BACTERIA,URINE FEW /HPF (0-FEW); SQUAMOUS EPITHELIAL CELL,UR FEW /LPF
[2021-09-07] MEDS ORDERED: ONDA4TAB7 PO (02:01)
[2021-09-07 02:25] VITALS: BP 128/72
== END 2021-09-07 02:30 | disposition home or self-care (01) ==
LOC: ER 21:31
DX: O21.0 Mild hyperemesis gravidarum (principal); O99.011 Anemia complicating pregnancy, first trimester; D64.9 Anemia, unspecified; O99.511 Diseases of the respiratory system complicating pregnancy, first trimester; J45.909 Unspecified asthma, uncomplicated; G43.909 Migraine, unspecified, not intractable, without status migrainosus; Z3A.01 Less than 8 weeks gestation of pregnancy; Z88.6 Allergy status to analgesic agent; Z91.013 Allergy to seafood
CPT/HCPCS: 36415; 80048; 80076; 80307; 81001; 81025; 82150; 83690; 84702; 85025; 86900; 86901; 87086; 96361; 96374; 96375; 99284; J2405; J3490; J7120